=== PATIENT | female | born 1955 | race Hispanic/Latino ===

== ENCOUNTER 2023-11-23 09:36 | Emergency (ER) | payer MEDICARE ==
[~2023-11-23] VITALS: Ht 149.9 cm; Wt 74.8 kg
[~2023-11-23 09:36] MED LIST: HUMALOG MI100 UNIT/2 SQ; NEURONTIN100 MG PO; OZEMPIC1 MG/0.71 SQ; SYNJARDY 5-1,01 EACH PO; TOUJEO MAX300 UNIT/1 SQ
[2023-11-23 09:58] LABS: BASOPHILS % 0.2 % (0.0-1.0); EOSINOPHILS % 0.2 % (0.0-6.0); HEMOGLOBIN 11.2 g/dL (12.0-16.0); LYMPHOCYTES # (AUTO) 1.6 (1.0-3.2); LYMPHOCYTES % 12.9 % (18.0-39.1); MEAN CORPUSCULAR HEMOGLOBIN 32.2 pg (28-32); MONOCYTES # (AUTO) 0.7 (0.2-0.8); MONOCYTES % 5.8 % (4.4-11.3); NEUTROPHILS # (AUTO) 10.2 (2.1-6.9); PLATELET COUNT 271 x10e3/uL (140-360); RED BLOOD COUNT 3.48 x10e6/uL (3.6-5.1); RED CELL DISTRIBUTION WIDTH 13.7 % (11.7-14.4); WHITE BLOOD COUNT 12.68 x10e3/uL (4.8-10.8)
[2023-11-23 10:19] LABS: ALBUMIN 2.7 g/dL (3.5-5.0); ALBUMIN/GLOBULIN RATIO 0.5 (0.8-2.0); ANION GAP 20.5 mmol/L (8-16); BILIRUBIN,TOTAL 1.2 mg/dL (0.2-1.2); CALCIUM 9.3 mg/dL (8.4-10.2); CREATININE, SERUM 0.86 mg/dL (0.57-1.11); POTASSIUM 4.5 mmol/L (3.5-5.1); TOTAL PROTEIN 8.2 g/dL (6.5-8.1)
[2023-11-23 10:25] LABS: COLOR,URINE YELLOW (YELLOW)
[2023-11-23 10:26] LABS: BILIRUBIN,URINE LARGE (NEGATIVE); GLUCOSE, URINE 1+ (NEGATIVE); KETONES,URINE 2+ (NEGATIVE); LEUKOCYTE ESTERASE ,URINE NEGATIVE (NEGATIVE); NITRITE,URINE POSITIVE (NEGATIVE); PH,URINE 5.5 (5 - 7); PROTEIN,URINE DIPSTICK >=300 (NEGATIVE)
[2023-11-23] MEDS ORDERED: IOPAMIDOL 370 MG/ML 100 ML INFUS..BTL INJ ONE ×2 (10:32→13:43)
[2023-11-23] MEDS ORDERED: HALOPERIDOL LACTATE 5 MG/ML VIAL ONE ×2 (10:42→11:59)
[2023-11-23] MEDS: HALOPERIDOL LACTATE 5 MG/ML VIAL IV ONE (10:55)
[2023-11-23] MEDS: DONNATAL/LIDOCAINE/MAALOX 30 ML SUSP PO ONE (11:06)
[2023-11-23 11:14] LABS: BACTERIA,URINE MANY /HPF; CLARITY,URINE TURBID (CLEAR); EPITHELIAL CELLS,URINE MANY /LPF; RBC,URINE 0-5 /HPF (0-5); TRANSITIONAL EPI CELLS,URINE FEW
[2023-11-23] MEDS: SODIUM CHLORIDE 0.9% 1000ML 1,000 ML IV ONE (11:17)
[2023-11-23] MEDS ORDERED: SODIUM CHLORIDE 0.9% 1000ML 1,000 ML ONE (11:19)
[2023-11-23] MEDS ORDERED: SODIUM CHLORIDE 0.9% 1000 ML BAG ONE ×2 (11:59→14:15)
[2023-11-23 12:25] LABS: INR 1.04; PROTHROMBIN TIME 14.3 seconds (11.9-14.5)
[2023-11-23 12:26] LABS: PARTIAL THROMBOPLASTIN TIME 29.7 seconds (23.8-35.5)
[2023-11-23] MEDS ORDERED: HEPARIN 25,000 UNIT/D5W 250ML 1,000 UNIT in DEXTROSE 5% 250ML 250 ML IV SCH (12:30)
[2023-11-23] MEDS ORDERED: HEPARIN SOD (PORCINE) 5,000 UNIT/ML VIAL IV ONE ×2 (12:30)
[2023-11-23] MEDS ORDERED: HEPARIN SOD (PORCINE) 5,000 UNIT/ML VIAL ONE ×2 (12:31→14:15)
[2023-11-23] MEDS ORDERED: HEPARIN 25,000 UNIT DRIP IV ONE ×2 (12:31→14:15)
[2023-11-23] MEDS ORDERED: HEPARIN IV SCH (12:45)
[2023-11-23] MEDS ORDERED: [UNRECOGNIZED DRUG - OTHER] IV SCH (12:45)
[2023-11-23] MEDS ORDERED: DEXTROSE 5% IV SCH (12:45)
[2023-11-23] MEDS: HEPARIN SOD (PORCINE) 5,000 UNIT/ML VIAL IV ONE (13:00)
[2023-11-23] MEDS: HEPARIN 25,000 UNIT/D5W 250ML 1,000 UNIT in DEXTROSE 5% 250ML 250 ML IV SCH (13:10)
[2023-11-23 13:36] VITALS: BP 124/81; PULSE 82; RESP 18
[2023-11-23] MEDS ORDERED: Sodium Chloride 0.9% 50ML Bag ONE ×2 (13:43→14:15)
[2023-11-23] MEDS ORDERED: CEFTRIAXONE 1 GM VIAL ONE ×2 (14:15→14:47)
[2023-11-23 14:30] VITALS: O2SAT 100
== END 2023-11-23 13:42 | disposition other institution (70) ==
LOC: ER 09:43
DX: R10.13 Epigastric pain (principal); I81 Portal vein thrombosis; N39.0 Urinary tract infection, site not specified; E11.40 Type 2 diabetes mellitus with diabetic neuropathy, unspecified; E11.65 Type 2 diabetes mellitus with hyperglycemia; I10 Essential (primary) hypertension; E03.9 Hypothyroidism, unspecified
CPT/HCPCS: 36415; 74177; 80053; 81001; 83690; 85025; 85610; 85730; 87086; 99284; J0696; J1630; J1644; J7030; Q9967